=== PATIENT | male | born 1985 ===

== ENCOUNTER 2021-03-28 10:51 | Inpatient (IN) | payer SELFPAY ==
[2021-03-28] MEDS ORDERED: Lorazepam 2 MG/ML VIAL ONE ×2 (11:06→11:18)
[2021-03-28 12:03] LABS: Bilirubin Neg (Negative); Blood, Urine 50 (Negative); Clarity Slightly Cloudy (Clear); Glucose, Urine (Dipstick) Normal (Negative); Ketone, Urine Negative (Negative); Leukocyte Negative (Negative); Nitrite Negative (Negative); Protein, Urine (Dipstick) 30 mg/dl (Neg-Trace); pH, Urine 6.5 (5.0-9.0)
[2021-03-28 12:07] LABS: #Monocytes 0.5 10x3/uL (0.0-1.1); #Neutrophils 4.8 10x3/uL (1.5-8.4); %Basophils 0.5 % (0.0-2.0); %Eosinophils 0.3 % (0.0-6.0); %Lymphocytes 12.7 % (18.0-47.0); %Monocytes 8.7 % (0.0-10.0); %Neutrophils 77.3 % (40.0-75.0); Hemoglobin 14.7 g/dL (13.5-17.5); Mean Corpuscular HGB CONC 31.4 g/dL (32.0-36.0); Mean Corpuscular Hemoglobin 27.4 pg (27.0-33.0); Mean Corpuscular Volume 87.3 fl (81.2-95.1); Mean Platelet Volume 9.2 fl (7.4-10.4); Platelet Count 316 10x3/uL (150-450); RBC Distribution Width 14.4 % (11.5-14.5); Red Blood Cell (RBC) Count 5.36 10x6/uL (4.32-5.72); White Blood Cell (WBC) Count 6.2 10x3/uL (3.5-10.5)
[2021-03-28 12:09] LABS: Bacteria/HPF Rare-Few HPF (None Seen); Mucous/LPF 1+ LPF (<2+); RBC/HPF 0-3 HPF (0-3); Squamous Epithelial 0-3 HPF (0-3); WBC/HPF 0-3 HPF (0-3)
[2021-03-28 12:10] LABS: Amphetamine Detected (NotDetected); Barbiturates Screen Not Detected (NotDetected); Benzodiazepine Screen Not Detected (NotDetected); Cocaine Metabolite Screen Not Detected (NotDetected); Methadone Not Detected (NotDetected); Methamphetamine Detected (NotDetected); Opiate Screen Detected (NotDetected); Oxycodone Screen Not Detected (NotDetected); Phencyclidine (PCP) Not Detected (NotDetected); THC/Cannabinoid Screen Detected (NotDetected); Tricyclic Screen Not Detected (NotDetected)
[2021-03-28 12:17] LABS: ALT (SGPT) 36 U/L (8-55); AST (SGOT) 45 U/L (5-34); Albumin 4.1 g/dL (3.5-5.0); Alkaline Phosphatase 95 U/L (40-110); Anion Gap 14 mmol/L (10-20); BUN (Urea Nitrogen) 25 mg/dL (8.9-20.6); Bilirubin, Total 0.2 mg/dL (0.2-1.2); Calc. Creatinine Clearance 0 mL/min (70-130); Calcium 8.3 mg/dL (7.8-10.44); Carbon Dioxide 24 mmol/L (22-29); Chloride 104 mmol/L (98-107); Globulin 3.3 g/dL (2.4-3.5); Lipase 23 U/L (8-78); Potassium 4.3 mmol/L (3.5-5.1); Protein, Total 7.4 g/dL (6.0-8.3); Sodium 138 mmol/L (136-145)
[2021-03-28 12:18] LABS: Acetaminophen Less than 6.0 mcg/mL (10.0-30.0); Alcohol Less than 10 mg/dL (Less than 10); CK (CPK) 1840 U/L (30-200); Magnesium 2.3 mg/dL (1.6-2.6); Salicylate Less than 8.0 mg/dL (15.0-30.0)
[2021-03-28 12:20] LABS: Glucose 46 mg/dL (70-105)
[2021-03-28] MEDS ORDERED: Ventilator Sedation Protocol 1 EACH FS SCH ×2 (13:45→17:00)
[2021-03-28] MEDS ORDERED: Acetaminophen 650 MG Suppository PR PRN (13:45)
[2021-03-28] MEDS ORDERED: Rocuronium Bromide 10 MG/ML (10ML VIAL) ONE (13:50)
[2021-03-28] MEDS ORDERED: Dextrose 5 % And 0.9 % NaCl 1,000 ML IV SCH (14:00)
[2021-03-28 14:22] LABS: SARS-CoV-2 NAA Rapid Test Not Detected (NotDetected)
[2021-03-28 14:33] LABS: Lactic Acid 1.8 mmol/L (0.5-2.2)
[2021-03-28] MEDS ORDERED: Propofol 1,000 MG/100 ML VIAL IV ONE (14:39)
[2021-03-28] MEDS ORDERED: Morphine 2 MG/ML VIAL SLOW IVP PRN (14:45)
[2021-03-28] MEDS ORDERED: Propofol BOLUS 1,000 MG/100 ML VIAL IV PRN (14:45)
[2021-03-28] MEDS ORDERED: Fentanyl BOLUS 250 ML IVPB PRN (14:45)
[2021-03-28] MEDS ORDERED: DISCONTINUE PREVIOUS NARCOTIC PAIN MEDICATIONS AND BENZODIAZEPINES FS SCH (14:45)
[2021-03-28 15:20] LABS: Actual Bicarbonate (HCO3a) 20.4 mEq/L (22-28); CO2 Tension 43.5 mmHg (35.0-45.0); Calcium, Ionized (arterial) 1.09 mmol/L (1.12-1.30); Carboxyhemoglobin (COHb) 1.5 gm% (0.0-3.0); O2 Tension (PaO2), arterial 156.1 mmHg (80.0-100.0); Potassium - ABG Lab 4.2 mmol/L (3.70-5.30); Puncture Site RRA; pH, Arterial 7.29 (7.35-7.45)
[2021-03-28 15:22] LABS: ALV-art Gradient 502.525 mmHg (0-20)
[2021-03-28] MEDS: fentaNYL Citrate-0.9 % NaCl/PF 100 ML IVPB SCH (15:27)
[2021-03-28] MEDS: Propofol 1,000 MG/100 ML VIAL IV PRN ×2 (15:27→17:13)
[2021-03-28] MEDS ORDERED: Ondansetron ODT 4 MG TAB ONE (16:26)
[2021-03-28] MEDS ORDERED: Piperacillin/Tazobactam 3.375 GM in Sodium Chloride 0.9% 100 ML IVPB SCH (16:30)
[2021-03-28 16:42] LABS: SARS-CoV-2 NAA Rapid Test Not Detected (NotDetected)
[2021-03-28] MEDS ORDERED: Dextrose 5%-Lactated Ringers 1,000 ML IV SCH (17:00)
[2021-03-28] MEDS: Midazolam In 0.9 % NaCl/PF 100 ML IVPB PRN (17:39)
[2021-03-28 18:15] LABS: Anion Gap 15 mmol/L (10-20); BUN (Urea Nitrogen) 24 mg/dL (8.9-20.6); Calc. Creatinine Clearance 122 mL/min (70-130); Calcium 7.9 mg/dL (7.8-10.44); Carbon Dioxide 21 mmol/L (22-29); Chloride 108 mmol/L (98-107); Glucose 103 mg/dL (70-105); Potassium 5.9 mmol/L (3.5-5.1); Sodium 138 mmol/L (136-145)
[2021-03-28 18:26] LABS: CK (CPK) 5566 U/L (30-200)
[2021-03-28] MEDS ORDERED: Dextrose 50% Abboject 50 ML SYRINGE SLOW IVP SCH (20:00)
[2021-03-28] MEDS ORDERED: Insulin Regular 300 UNITS/3 ML VIAL IVP SCH (20:00)
[2021-03-28] MEDS: Sodium Chloride 0.9% 1,000 ML IV SCH (20:32)
[2021-03-28] MEDS: Piperacillin/Tazobactam 3.375 GM in Sodium Chloride 0.9% 100 ML IVPB SCH (20:33)
[2021-03-28] MEDS: Sodium Bicarbonate 150 MEQ, Admixture Fee 1 EACH in Dextrose 5% in Water 1,000 ML IV SCH (21:51)
[2021-03-28 23:47] LABS: Anion Gap 11 mmol/L (10-20); BUN (Urea Nitrogen) 19 mg/dL (8.9-20.6); Calc. Creatinine Clearance 158 mL/min (70-130); Calcium 7.5 mg/dL (7.8-10.44); Carbon Dioxide 21 mmol/L (22-29); Chloride 109 mmol/L (98-107); Glucose 121 mg/dL (70-105); Potassium 4.3 mmol/L (3.5-5.1); Sodium 137 mmol/L (136-145)
[2021-03-29 00:08] LABS: CK (CPK) 5515 U/L (30-200)
[2021-03-29] MEDS: Midazolam In 0.9 % NaCl/PF 100 ML IVPB PRN ×2 (04:11→15:35)
[2021-03-29] MEDS: Sodium Chloride 0.9% 1,000 ML IV SCH ×2 (04:11→10:47)
[2021-03-29] MEDS: Piperacillin/Tazobactam 3.375 GM in Sodium Chloride 0.9% 100 ML IVPB SCH ×3 (06:08→21:13)
[2021-03-29 06:31] LABS: #Eosinphils 0.1 10x3/uL (0.0-0.5); #Monocytes 0.4 10x3/uL (0.0-1.1); #Neutrophils 5.3 10x3/uL (1.5-8.4); %Basophils 0.3 % (0.0-2.0); %Eosinophils 0.9 % (0.0-6.0); %Lymphocytes 14.1 % (18.0-47.0); %Monocytes 6.1 % (0.0-10.0); %Neutrophils 78.3 % (40.0-75.0); Hemoglobin 9.9 g/dL (13.5-17.5); Mean Corpuscular HGB CONC 31.1 g/dL (32.0-36.0); Mean Corpuscular Hemoglobin 27.6 pg (27.0-33.0); Mean Corpuscular Volume 88.6 fl (81.2-95.1); Mean Platelet Volume 10.1 fl (7.4-10.4); Platelet Count 190 10x3/uL (150-450); RBC Distribution Width 14.6 % (11.5-14.5); Red Blood Cell (RBC) Count 3.59 10x6/uL (4.32-5.72); White Blood Cell (WBC) Count 6.8 10x3/uL (3.5-10.5)
[2021-03-29 06:34] LABS: Lactic Acid 1.6 mmol/L (0.5-2.2)
[2021-03-29] MEDS: Sodium Bicarbonate 150 MEQ, Admixture Fee 1 EACH in Dextrose 5% in Water 1,000 ML IV SCH (06:38)
[2021-03-29 06:40] LABS: Anion Gap 13 mmol/L (10-20); BUN (Urea Nitrogen) 16 mg/dL (8.9-20.6); Calc. Creatinine Clearance 204 mL/min (70-130); Calcium 6.8 mg/dL (7.8-10.44); Carbon Dioxide 21 mmol/L (22-29); Chloride 112 mmol/L (98-107); Glucose 96 mg/dL (70-105); Potassium 3.7 mmol/L (3.5-5.1); Sodium 142 mmol/L (136-145)
[2021-03-29 06:51] LABS: CK (CPK) 4441 U/L (30-200)
[2021-03-29 07:09] LABS: Anisocytosis SLIGHT = 6-15 cells (100X) (0-5/hpf); Toxic Granulation SLIGHT
[2021-03-29 07:10] LABS: Platelet Morphology Comment Appears Adequate
[2021-03-29] MEDS: fentaNYL Citrate-0.9 % NaCl/PF 100 ML IVPB SCH ×2 (08:34→17:46)
[2021-03-29] MEDS: Lorazepam 2 MG/ML VIAL SLOW IVP PRN (08:35)
[2021-03-29] MEDS: Pantoprazole 40 MG VIAL IVP SCH (08:51)
[2021-03-29] MEDS: Enoxaparin Sodium 40 MG/0.4 ML SYRINGE SC SCH (08:51)
[2021-03-29] MEDS: Vecuronium Bromide 50 MG, Admixture Fee 1 EACH in Sodium Chloride 0.9% 250 ML 250 ML IV PRN ×2 (09:29→17:47)
[2021-03-29 10:47] LABS: Actual Bicarbonate (HCO3a) 30.7 mEq/L (22-28); Base Excess (BEa) 2.3 mEq/L (-2.0 to +3.0); CO2 Tension 66.6 mmHg (35.0-45.0); Calcium, Ionized (arterial) 1.08 mmol/L (1.12-1.30); Carboxyhemoglobin (COHb) 0.2 gm% (0.0-3.0); Hemoglobin (Hb) 12.9 g/dL (14.0-18.0); O2 Tension (PaO2), arterial 60.5 mmHg (80.0-100.0); Potassium - ABG Lab 3.8 mmol/L (3.70-5.30); Puncture Site RRA; pH, Arterial 7.28 (7.35-7.45)
[2021-03-29] MEDS ORDERED: Sodium Bicarbonate 2.5 MEQ/5 ML VIAL ONE (11:03)
[2021-03-29] MEDS ORDERED: Lidocaine 1% PF 5 ML VIAL ONE (11:03)
[2021-03-29] MEDS: Acetaminophen 650 MG/20.3 ML UDCUP PER TUBE PRN ×2 (11:52→21:13)
[2021-03-29 15:03] LABS: Hemoglobin 10.6 g/dL (13.5-17.5)
[2021-03-29] MEDS: Dexmedetomidine In 0.9 % NaCl 100 ML IVPB SCH ×3 (15:17→23:21)
[2021-03-29 20:55] LABS: Anion Gap 9 mmol/L (10-20); BUN (Urea Nitrogen) 16 mg/dL (8.9-20.6); CK (CPK) 2604 U/L (30-200); Calc. Creatinine Clearance 163 mL/min (70-130); Calcium 7.7 mg/dL (7.8-10.44); Carbon Dioxide 30 mmol/L (22-29); Chloride 104 mmol/L (98-107); Glucose 109 mg/dL (70-105); Potassium 4.3 mmol/L (3.5-5.1); Sodium 139 mmol/L (136-145)
[2021-03-29] MEDS ORDERED: Lactated Ringer's 1,000 ML IV SCH (21:00)
[2021-03-30] MEDS: Midazolam In 0.9 % NaCl/PF 100 ML IVPB PRN ×2 (02:00→12:42)
[2021-03-30] MEDS ORDERED: Sodium Chloride 0.9% 1,000 ML IV SCH ×2 (02:00→05:45)
[2021-03-30] MEDS ORDERED: Norepinephrine 8 MG/0.9% NS 250 ML IVPB SCH (02:00)
[2021-03-30] MEDS: Dexmedetomidine In 0.9 % NaCl 100 ML IVPB SCH ×6 (02:05→21:51)
[2021-03-30] MEDS: fentaNYL Citrate-0.9 % NaCl/PF 100 ML IVPB SCH ×2 (02:05→15:10)
[2021-03-30 04:45] LABS: #Eosinphils 0.1 10x3/uL (0.0-0.5); #Monocytes 0.5 10x3/uL (0.0-1.1); #Neutrophils 5.7 10x3/uL (1.5-8.4); %Basophils 0.4 % (0.0-2.0); %Eosinophils 1.4 % (0.0-6.0); %Lymphocytes 13.1 % (18.0-47.0); %Monocytes 7.4 % (0.0-10.0); %Neutrophils 77.3 % (40.0-75.0); Hemoglobin 10.5 g/dL (13.5-17.5); Mean Corpuscular HGB CONC 29.7 g/dL (32.0-36.0); Mean Corpuscular Volume 90.7 fl (81.2-95.1); Mean Platelet Volume 10.2 fl (7.4-10.4); Platelet Count 180 10x3/uL (150-450); RBC Distribution Width 14.5 % (11.5-14.5); Red Blood Cell (RBC) Count 3.89 10x6/uL (4.32-5.72); White Blood Cell (WBC) Count 7.3 10x3/uL (3.5-10.5)
[2021-03-30 04:47] LABS: ALT (SGPT) 41 U/L (8-55); Albumin 2.7 g/dL (3.5-5.0); Alkaline Phosphatase 58 U/L (40-110); Anion Gap 13 mmol/L (10-20); BUN (Urea Nitrogen) 17 mg/dL (8.9-20.6); Bilirubin, Total 0.6 mg/dL (0.2-1.2); CK (CPK) 1861 U/L (30-200); Calc. Creatinine Clearance 158 mL/min (70-130); Calcium 7.9 mg/dL (7.8-10.44); Carbon Dioxide 27 mmol/L (22-29); Chloride 106 mmol/L (98-107); Globulin 2.9 g/dL (2.4-3.5); Glucose 104 mg/dL (70-105); Potassium 5.5 mmol/L (3.5-5.1); Protein, Total 5.6 g/dL (6.0-8.3); Sodium 140 mmol/L (136-145)
[2021-03-30 04:49] LABS: AST (SGOT) 59 U/L (5-34)
[2021-03-30 05:22] LABS: Platelet Morphology Comment Appears Adequate; RBC Morphology Normal
[2021-03-30] MEDS: Piperacillin/Tazobactam 3.375 GM in Sodium Chloride 0.9% 100 ML IVPB SCH ×3 (05:24→21:51)
[2021-03-30] MEDS: Sodium Chloride 0.9% 1,000 ML IV SCH ×2 (06:27→16:46)
[2021-03-30 08:05] LABS: Base Excess (BEa) 1.7 mEq/L (-2.0 to +3.0); CO2 Tension 58.6 mmHg (35.0-45.0); Calcium, Ionized (arterial) 1.17 mmol/L (1.12-1.30); O2 Tension (PaO2), arterial 145.4 mmHg (80.0-100.0); Potassium - ABG Lab 4.4 mmol/L (3.70-5.30); Puncture Site RRA; pH, Arterial 7.31 (7.35-7.45)
[2021-03-30] MEDS: Vecuronium Bromide 50 MG, Admixture Fee 1 EACH in Sodium Chloride 0.9% 250 ML 250 ML IV PRN (08:49)
[2021-03-30] MEDS ORDERED: Enoxaparin Sodium 40 MG/0.4 ML SYRINGE ONE (08:59)
[2021-03-30] MEDS: Enoxaparin Sodium 40 MG/0.4 ML SYRINGE SC SCH (09:36)
[2021-03-30] MEDS: Pantoprazole 40 MG VIAL IVP SCH (09:37)
[2021-03-30] MEDS ORDERED: oxyCODONE 5 MG TAB PO PRN (10:49)
[2021-03-30 15:28] LABS: Anion Gap 11 mmol/L (10-20); BUN (Urea Nitrogen) 17 mg/dL (8.9-20.6); CK (CPK) 1088 U/L (30-200); Calc. Creatinine Clearance 222 mL/min (70-130); Calcium 7.6 mg/dL (7.8-10.44); Carbon Dioxide 25 mmol/L (22-29); Chloride 110 mmol/L (98-107); Glucose 93 mg/dL (70-105); Potassium 5.2 mmol/L (3.5-5.1); Sodium 141 mmol/L (136-145)
[2021-03-30] MEDS: chlordiazePOXIDE HCl 25 MG CAP PO SCH ×2 (16:11→21:51)
[2021-03-30] MEDS ORDERED: Metoclopramide HCl 10 MG/2 ML VIAL IVP SCH (18:00)
[2021-03-30] MEDS ORDERED: Polyethylene Glycol 3350 17 GM Packet PO SCH (20:30)
[2021-03-30] MEDS ORDERED: oxyCODONE ER 10 MG TAB PO SCH ×2 (21:00)
[2021-03-31] MEDS: fentaNYL Citrate-0.9 % NaCl/PF 100 ML IVPB SCH ×3 (02:14→20:28)
[2021-03-31] MEDS: Midazolam In 0.9 % NaCl/PF 100 ML IVPB PRN ×2 (02:17→16:27)
[2021-03-31] MEDS: Dexmedetomidine In 0.9 % NaCl 100 ML IVPB SCH ×6 (02:20→19:26)
[2021-03-31 04:02] LABS: Anion Gap 13 mmol/L (10-20); BUN (Urea Nitrogen) 16 mg/dL (8.9-20.6); CK (CPK) 830 U/L (30-200); Calc. Creatinine Clearance 219 mL/min (70-130); Carbon Dioxide 26 mmol/L (22-29); Chloride 109 mmol/L (98-107); Glucose 111 mg/dL (70-105); Magnesium 1.7 mg/dL (1.6-2.6); Potassium 4.3 mmol/L (3.5-5.1); Sodium 144 mmol/L (136-145)
[2021-03-31 04:15] LABS: Hemoglobin 10.8 g/dL (13.5-17.5); Mean Corpuscular HGB CONC 31.1 g/dL (32.0-36.0); Mean Corpuscular Hemoglobin 27.8 pg (27.0-33.0); Mean Corpuscular Volume 89.2 fl (81.2-95.1); Platelet Count 205 10x3/uL (150-450); RBC Distribution Width 14.5 % (11.5-14.5); Red Blood Cell (RBC) Count 3.89 10x6/uL (4.32-5.72); White Blood Cell (WBC) Count 7.5 10x3/uL (3.5-10.5)
[2021-03-31] MEDS: Piperacillin/Tazobactam 3.375 GM in Sodium Chloride 0.9% 100 ML IVPB SCH ×3 (04:40→22:28)
[2021-03-31] MEDS: Sodium Chloride 0.9% 1,000 ML IV SCH ×2 (04:41→17:11)
[2021-03-31 07:36] LABS: Actual Bicarbonate (HCO3a) 27.5 mEq/L (22-28); Base Excess (BEa) 1.6 mEq/L (-2.0 to +3.0); CO2 Tension 48.8 mmHg (35.0-45.0); Calcium, Ionized (arterial) 1.16 mmol/L (1.12-1.30); Carboxyhemoglobin (COHb) 0.3 gm% (0.0-3.0); Hemoglobin (Hb) 11.6 g/dL (14.0-18.0); O2 Tension (PaO2), arterial 116.1 mmHg (80.0-100.0); Potassium - ABG Lab 4.1 mmol/L (3.70-5.30); Puncture Site RRA; pH, Arterial 7.37 (7.35-7.45)
[2021-03-31] MEDS: chlordiazePOXIDE HCl 25 MG CAP PO SCH ×3 (08:05→22:28)
[2021-03-31] MEDS: Enoxaparin Sodium 40 MG/0.4 ML SYRINGE SC SCH (08:05)
[2021-03-31] MEDS: Pantoprazole 40 MG VIAL IVP SCH (08:06)
[2021-03-31] MEDS: Furosemide 20 MG/2 ML VIAL SLOW IVP SCH ×2 (08:30→22:28)
[2021-03-31] MEDS ORDERED: oxyCODONE 5 MG TAB PO PRN (10:20)
[2021-03-31] MEDS: Lorazepam 2 MG/ML VIAL SLOW IVP PRN ×2 (14:26→17:26)
[2021-03-31] MEDS: Propofol 1,000 MG/100 ML VIAL IV PRN ×2 (20:52→23:51)
[2021-04-01] MEDS: Piperacillin/Tazobactam 3.375 GM in Sodium Chloride 0.9% 100 ML IVPB SCH ×4 (00:27→23:00)
[2021-04-01] MEDS: Sodium Chloride 0.9% 1,000 ML IV SCH ×4 (00:27→14:27)
[2021-04-01] MEDS: Midazolam In 0.9 % NaCl/PF 100 ML IVPB PRN ×2 (02:54→11:16)
[2021-04-01 04:19] LABS: #Eosinphils 0.3 10x3/uL (0.0-0.5); #Monocytes 0.9 10x3/uL (0.0-1.1); #Neutrophils 4.7 10x3/uL (1.5-8.4); %Basophils 0.4 % (0.0-2.0); %Eosinophils 3.4 % (0.0-6.0); %Lymphocytes 17.7 % (18.0-47.0); %Monocytes 12.4 % (0.0-10.0); Hemoglobin 9.5 g/dL (13.5-17.5); Mean Corpuscular HGB CONC 30.9 g/dL (32.0-36.0); Mean Corpuscular Hemoglobin 27.5 pg (27.0-33.0); Mean Corpuscular Volume 88.7 fl (81.2-95.1); Mean Platelet Volume 10.4 fl (7.4-10.4); Platelet Count 179 10x3/uL (150-450); RBC Distribution Width 14.4 % (11.5-14.5); Red Blood Cell (RBC) Count 3.46 10x6/uL (4.32-5.72); White Blood Cell (WBC) Count 7.3 10x3/uL (3.5-10.5)
[2021-04-01 04:40] LABS: ALT (SGPT) 46 U/L (8-55); AST (SGOT) 36 U/L (5-34); Albumin 2.5 g/dL (3.5-5.0); Alkaline Phosphatase 63 U/L (40-110); Anion Gap 13 mmol/L (10-20); BUN (Urea Nitrogen) 13 mg/dL (8.9-20.6); Bilirubin, Total 0.5 mg/dL (0.2-1.2); CK (CPK) 505 U/L (30-200); Calc. Creatinine Clearance 212 mL/min (70-130); Calcium 8.1 mg/dL (7.8-10.44); Carbon Dioxide 27 mmol/L (22-29); Chloride 109 mmol/L (98-107); Globulin 2.9 g/dL (2.4-3.5); Glucose 91 mg/dL (70-105); Protein, Total 5.4 g/dL (6.0-8.3); Sodium 146 mmol/L (136-145)
[2021-04-01] MEDS: Dexmedetomidine In 0.9 % NaCl 100 ML IVPB SCH (05:57)
[2021-04-01] MEDS: chlordiazePOXIDE HCl 25 MG CAP PO SCH ×3 (05:57→21:00)
[2021-04-01] MEDS ORDERED: Potassium Chloride 20 MEQ TAB PER TUBE SCH (06:15)
[2021-04-01] MEDS: fentaNYL Citrate-0.9 % NaCl/PF 100 ML IVPB SCH ×2 (06:25→15:50)
[2021-04-01 06:39] LABS: Magnesium 1.4 mg/dL (1.6-2.6)
[2021-04-01] MEDS ORDERED: Potassium Chloride 20 MEQ in Premix Bag 1 BAG IVPB SCH (06:45)
[2021-04-01] MEDS: Propofol 1,000 MG/100 ML VIAL IV PRN ×4 (06:50→20:30)
[2021-04-01 07:54] LABS: Magnesium 1.5 mg/dL (1.6-2.6)
[2021-04-01] MEDS: Enoxaparin Sodium 40 MG/0.4 ML SYRINGE SC SCH (09:20)
[2021-04-01] MEDS: Furosemide 20 MG/2 ML VIAL SLOW IVP SCH ×2 (09:20→20:59)
[2021-04-01] MEDS: Polyethylene Glycol 3350 17 GM Packet PER TUBE SCH (09:21)
[2021-04-01] MEDS: Pantoprazole 40 MG VIAL IVP SCH (09:21)
[2021-04-01 09:57] LABS: Actual Bicarbonate (HCO3a) 27.8 mEq/L (22-28); Base Excess (BEa) 3.2 mEq/L (-2.0 to +3.0); CO2 Tension 42.4 mmHg (35.0-45.0); Calcium, Ionized (arterial) 1.13 mmol/L (1.12-1.30); Carboxyhemoglobin (COHb) 0.3 gm% (0.0-3.0); Hemoglobin (Hb) 10.9 g/dL (14.0-18.0); O2 Tension (PaO2), arterial 72.9 mmHg (80.0-100.0); Potassium - ABG Lab 2.9 mmol/L (3.70-5.30); Puncture Site RRA; pH, Arterial 7.43 (7.35-7.45)
[2021-04-01] MEDS ORDERED: PHENobarbital Sodium 65 MG/ML VIAL SLOW IVP SCH ×3 (11:00→14:00)
[2021-04-01] MEDS ORDERED: Magnesium 2 GM/50 ML 2 GM in Premix Bag 1 BAG IVPB SCH (12:00)
[2021-04-01] MEDS: Potassium Bicarbonate/Cit Ac 20 MEQ TAB PER TUBE SCH ×2 (12:07→15:52)
[2021-04-01] MEDS: Acetaminophen 650 MG/20.3 ML UDCUP PER TUBE PRN (12:07)
[2021-04-01] MEDS: Furosemide 40 MG/4 ML VIAL SLOW IVP SCH ×2 (15:22→15:50)
[2021-04-01] MEDS: PHENobarbital Sodium 65 MG/ML VIAL SLOW IVP SCH ×2 (17:09→20:59)
[2021-04-02] MEDS: PHENobarbital Sodium 65 MG/ML VIAL SLOW IVP SCH ×6 (00:25→20:52)
[2021-04-02] MEDS: Propofol 1,000 MG/100 ML VIAL IV PRN ×5 (01:38→22:07)
[2021-04-02] MEDS: fentaNYL Citrate-0.9 % NaCl/PF 100 ML IVPB SCH (01:38)
[2021-04-02] MEDS: Furosemide 40 MG/4 ML VIAL SLOW IVP SCH ×2 (02:35→14:44)
[2021-04-02] MEDS: Midazolam In 0.9 % NaCl/PF 100 ML IVPB PRN (03:44)
[2021-04-02] MEDS: chlordiazePOXIDE HCl 25 MG CAP PO SCH (05:07)
[2021-04-02] MEDS: Piperacillin/Tazobactam 3.375 GM in Sodium Chloride 0.9% 100 ML IVPB SCH ×3 (05:07→20:52)
[2021-04-02 06:36] LABS: Albumin 2.6 g/dL (3.5-5.0); Anion Gap 16 mmol/L (10-20); BUN (Urea Nitrogen) 13 mg/dL (8.9-20.6); BUN/Creatinine Ratio 15.85; CK (CPK) 442 U/L (30-200); Calc. Creatinine Clearance 208 mL/min (70-130); Calcium 8.6 mg/dL (7.8-10.44); Carbon Dioxide 25 mmol/L (22-29); Chloride 110 mmol/L (98-107); Glucose 132 mg/dL (70-105); Phosphorus 2.4 mg/dL (2.3-4.7); Potassium 3.8 mmol/L (3.5-5.1); Sodium 147 mmol/L (136-145)
[2021-04-02 06:48] LABS: Platelet Count 152 10x3/uL (150-450)
[2021-04-02 06:57] LABS: Hemoglobin 9.9 g/dL (13.5-17.5); Mean Corpuscular HGB CONC 31.8 g/dL (32.0-36.0); Mean Corpuscular Volume 84.7 fl (81.2-95.1); Mean Platelet Volume 10.4 fl (7.4-10.4); RBC Distribution Width 14.7 % (11.5-14.5); Red Blood Cell (RBC) Count 3.67 10x6/uL (4.32-5.72); White Blood Cell (WBC) Count 8.5 10x3/uL (3.5-10.5)
[2021-04-02] MEDS: Pantoprazole 40 MG VIAL IVP SCH (07:56)
[2021-04-02] MEDS: Polyethylene Glycol 3350 17 GM Packet PER TUBE SCH (07:56)
[2021-04-02] MEDS: Furosemide 20 MG/2 ML VIAL SLOW IVP SCH (07:56)
[2021-04-02] MEDS: Enoxaparin Sodium 40 MG/0.4 ML SYRINGE SC SCH (07:56)
[2021-04-02] MEDS: Acetaminophen 650 MG/20.3 ML UDCUP PER TUBE PRN ×2 (08:44→12:27)
[2021-04-02] MEDS: Sodium Chloride 0.9% 1,000 ML IV SCH (11:37)
[2021-04-02] MEDS ORDERED: Piperacillin/Tazobactam 3.375 GM VIAL ONE (13:27)
[2021-04-02] MEDS ORDERED: chlordiazePOXIDE HCl 5 MG CAP PO SCH (14:00)
[2021-04-02] MEDS: chlordiazePOXIDE HCl 5 MG CAP PO SCH (20:50)
[2021-04-03] MEDS: PHENobarbital Sodium 65 MG/ML VIAL SLOW IVP SCH (01:27)
[2021-04-03] MEDS: Sodium Chloride 0.9% 1,000 ML IV SCH (01:28)
[2021-04-03] MEDS: Propofol 1,000 MG/100 ML VIAL IV PRN ×5 (03:43→22:40)
[2021-04-03] MEDS: chlordiazePOXIDE HCl 5 MG CAP PO SCH ×3 (05:30→21:07)
[2021-04-03] MEDS: Piperacillin/Tazobactam 3.375 GM in Sodium Chloride 0.9% 100 ML IVPB SCH ×3 (05:30→21:08)
[2021-04-03] MEDS: Acetaminophen 650 MG/20.3 ML UDCUP PER TUBE PRN ×2 (08:44→14:45)
[2021-04-03] MEDS: Polyethylene Glycol 3350 17 GM Packet PER TUBE SCH (08:44)
[2021-04-03] MEDS: Furosemide 40 MG/4 ML VIAL SLOW IVP SCH (08:44)
[2021-04-03] MEDS: Enoxaparin Sodium 40 MG/0.4 ML SYRINGE SC SCH (08:45)
[2021-04-03] MEDS: Pantoprazole 40 MG VIAL IVP SCH (08:45)
[2021-04-03] MEDS: fentaNYL Citrate-0.9 % NaCl/PF 100 ML IVPB SCH (09:11)
[2021-04-03] MEDS ORDERED: Sodium Chloride 0.9% 1,000 ML IV SCH (11:00)
[2021-04-03] MEDS: Metoclopramide HCl 10 MG/2 ML VIAL IVP SCH ×3 (12:02→23:50)
[2021-04-03 12:29] LABS: Hemoglobin 11.1 g/dL (13.5-17.5); Mean Corpuscular HGB CONC 31.4 g/dL (32.0-36.0); Mean Corpuscular Volume 85.9 fl (81.2-95.1); Mean Platelet Volume 10.5 fl (7.4-10.4); Platelet Count 252 10x3/uL (150-450); RBC Distribution Width 15.2 % (11.5-14.5); Red Blood Cell (RBC) Count 4.11 10x6/uL (4.32-5.72)
[2021-04-03 12:39] LABS: ALT (SGPT) 39 U/L (8-55); Albumin 2.9 g/dL (3.5-5.0); Alkaline Phosphatase 126 U/L (40-110); Anion Gap 17 mmol/L (10-20); BUN (Urea Nitrogen) 13 mg/dL (8.9-20.6); Bilirubin, Total 0.7 mg/dL (0.2-1.2); Calc. Creatinine Clearance 200 mL/min (70-130); Calcium 8.8 mg/dL (7.8-10.44); Carbon Dioxide 24 mmol/L (22-29); Chloride 107 mmol/L (98-107); Globulin 4.4 g/dL (2.4-3.5); Glucose 125 mg/dL (70-105); Potassium 4.4 mmol/L (3.5-5.1); Protein, Total 7.3 g/dL (6.0-8.3); Sodium 144 mmol/L (136-145)
[2021-04-03 13:15] LABS: AST (SGOT) 38 U/L (5-34)
[2021-04-03 13:31] LABS: MDiff Complete? YES
[2021-04-03 13:34] LABS: Band 2 % (5-11); Eosinophils 1 % (0-10); Large Platelets SLIGHT; Lymphocytes 15 % (21-51); Monocytes 12 % (0-10); Neutrophil 69 % (42-75); Nucleated RBC 1 % (0); Platelet Morphology Comment Appears Adequate
[2021-04-03 13:35] LABS: White Blood Cell (WBC) Count 9.3 10x3/uL (3.5-10.5)
[2021-04-04] MEDS: Propofol 1,000 MG/100 ML VIAL IV PRN ×3 (04:51→16:25)
[2021-04-04] MEDS: chlordiazePOXIDE HCl 5 MG CAP PO SCH ×2 (05:05→14:51)
[2021-04-04] MEDS: Metoclopramide HCl 10 MG/2 ML VIAL IVP SCH ×4 (05:05→23:43)
[2021-04-04] MEDS: Piperacillin/Tazobactam 3.375 GM in Sodium Chloride 0.9% 100 ML IVPB SCH ×3 (05:06→21:15)
[2021-04-04 07:47] LABS: Actual Bicarbonate (HCO3a) 26.1 mEq/L (22-28); Base Excess (BEa) 2.2 mEq/L (-2.0 to +3.0); Calcium, Ionized (arterial) 1.14 mmol/L (1.12-1.30); Carboxyhemoglobin (COHb) 0.3 gm% (0.0-3.0); Hemoglobin (Hb) 11.5 g/dL (14.0-18.0); O2 Tension (PaO2), arterial 58.5 mmHg (80.0-100.0); Potassium - ABG Lab 3.7 mmol/L (3.70-5.30); Puncture Site RRA; pH, Arterial 7.46 (7.35-7.45)
[2021-04-04] MEDS: Pantoprazole 40 MG VIAL IVP SCH (08:56)
[2021-04-04] MEDS: Enoxaparin Sodium 40 MG/0.4 ML SYRINGE SC SCH (08:56)
[2021-04-04] MEDS: Furosemide 40 MG/4 ML VIAL SLOW IVP SCH (08:56)
[2021-04-04] MEDS: Polyethylene Glycol 3350 17 GM Packet PER TUBE SCH (08:56)
[2021-04-04] MEDS ORDERED: fentaNYL 75 mcg/hour Patch TD SCH (11:00)
[2021-04-04] MEDS: Haloperidol Lactate 5 MG/ML VIAL SLOW IVP SCH ×7 (11:07→22:33)
[2021-04-04] MEDS: Lorazepam 2 MG/ML VIAL SLOW IVP SCH ×7 (11:07→22:33)
[2021-04-04] MEDS: fentaNYL Citrate-0.9 % NaCl/PF 100 ML IVPB SCH (16:24)
[2021-04-04] MEDS: chlordiazePOXIDE HCl 25 MG CAP PO SCH (21:17)
[2021-04-05] MEDS: Lorazepam 2 MG/ML VIAL SLOW IVP SCH ×4 (01:04→07:45)
[2021-04-05] MEDS: Haloperidol Lactate 5 MG/ML VIAL SLOW IVP SCH ×12 (01:04→23:11)
[2021-04-05] MEDS: Propofol 1,000 MG/100 ML VIAL IV PRN (03:07)
[2021-04-05 04:26] LABS: ALT (SGPT) 55 U/L (8-55); AST (SGOT) 64 U/L (5-34); Albumin 2.9 g/dL (3.5-5.0); Alkaline Phosphatase 126 U/L (40-110); Anion Gap 14 mmol/L (10-20); BUN (Urea Nitrogen) 22 mg/dL (8.9-20.6); Bilirubin, Total 0.6 mg/dL (0.2-1.2); Calc. Creatinine Clearance 222 mL/min (70-130); Calcium 8.5 mg/dL (7.8-10.44); Carbon Dioxide 27 mmol/L (22-29); Chloride 104 mmol/L (98-107); Glucose 107 mg/dL (70-105); Potassium 3.3 mmol/L (3.5-5.1); Protein, Total 6.9 g/dL (6.0-8.3); Sodium 142 mmol/L (136-145)
[2021-04-05] MEDS ORDERED: Potassium Chloride 20 MEQ in Premix Bag 1 BAG IVPB SCH (05:15)
[2021-04-05] MEDS: chlordiazePOXIDE HCl 25 MG CAP PO SCH (05:32)
[2021-04-05] MEDS: Metoclopramide HCl 10 MG/2 ML VIAL IVP SCH ×4 (05:35→23:10)
[2021-04-05] MEDS: Piperacillin/Tazobactam 3.375 GM in Sodium Chloride 0.9% 100 ML IVPB SCH ×3 (05:35→20:52)
[2021-04-05 07:28] LABS: Hemoglobin 10.1 g/dL (13.5-17.5); Mean Corpuscular HGB CONC 31.5 g/dL (32.0-36.0); Mean Corpuscular Hemoglobin 26.9 pg (27.0-33.0); Mean Corpuscular Volume 85.4 fl (81.2-95.1); Mean Platelet Volume 9.8 fl (7.4-10.4); Platelet Count 294 10x3/uL (150-450); RBC Distribution Width 15.1 % (11.5-14.5); Red Blood Cell (RBC) Count 3.76 10x6/uL (4.32-5.72); White Blood Cell (WBC) Count 7.1 10x3/uL (3.5-10.5)
[2021-04-05 07:29] LABS: MDiff Complete? YES
[2021-04-05 07:32] LABS: Band 5 % (5-11); Eosinophils 4 % (0-10); Lymphocytes 18 % (21-51); Monocytes 15 % (0-10); Neutrophil 56 % (42-75); Reactive Lymphocytes 2 % (0-10)
[2021-04-05 07:33] LABS: Platelet Morphology Comment Appears Adequate; RBC Morphology Normal
[2021-04-05 08:18] LABS: Base Excess (BEa) 2.6 mEq/L (-2.0 to +3.0); CO2 Tension 41.3 mmHg (35.0-45.0); Carboxyhemoglobin (COHb) 0.4 gm% (0.0-3.0); Hemoglobin (Hb) 11.7 g/dL (14.0-18.0); O2 Tension (PaO2), arterial 64.2 mmHg (80.0-100.0); Potassium - ABG Lab 3.5 mmol/L (3.70-5.30); Puncture Site LRA; pH, Arterial 7.43 (7.35-7.45)
[2021-04-05 08:23] LABS: ALV-art Gradient 205.025 mmHg (0-20)
[2021-04-05] MEDS: Midazolam In 0.9 % NaCl/PF 100 ML IVPB PRN ×3 (09:32→18:19)
[2021-04-05] MEDS: Enoxaparin Sodium 40 MG/0.4 ML SYRINGE SC SCH ×2 (09:33→20:53)
[2021-04-05] MEDS: Polyethylene Glycol 3350 17 GM Packet PER TUBE SCH (09:34)
[2021-04-05] MEDS: Pantoprazole 40 MG VIAL IVP SCH (09:34)
[2021-04-05] MEDS: Furosemide 40 MG/4 ML VIAL SLOW IVP SCH (09:34)
[2021-04-05] MEDS ORDERED: Metoclopramide HCl 10 MG/2 ML VIAL ONE (12:46)
[2021-04-05] MEDS: Erythromycin Base 250 MG TAB PO SCH ×3 (13:06→23:10)
[2021-04-05 17:24] LABS: SARS-CoV-2 PCR by NAA Not Detected (NotDetected)
[2021-04-05] MEDS: Acetaminophen 650 MG/20.3 ML UDCUP PER TUBE PRN (20:53)
[2021-04-06] MEDS: Haloperidol Lactate 5 MG/ML VIAL SLOW IVP SCH ×12 (01:05→22:57)
[2021-04-06 01:56] LABS: ALT (SGPT) 69 U/L (8-55); AST (SGOT) 74 U/L (5-34); Albumin 3.3 g/dL (3.5-5.0); Alkaline Phosphatase 143 U/L (40-110); Anion Gap 17 mmol/L (10-20); BUN (Urea Nitrogen) 22 mg/dL (8.9-20.6); Bilirubin, Total 0.7 mg/dL (0.2-1.2); CK (CPK) 537 U/L (30-200); Calc. Creatinine Clearance 213 mL/min (70-130); Calcium 8.8 mg/dL (7.8-10.44); Carbon Dioxide 23 mmol/L (22-29); Chloride 105 mmol/L (98-107); Globulin 4.4 g/dL (2.4-3.5); Glucose 118 mg/dL (70-105); Potassium 3.7 mmol/L (3.5-5.1); Protein, Total 7.7 g/dL (6.0-8.3); Sodium 141 mmol/L (136-145)
[2021-04-06 02:37] LABS: #Basophils 0.1 10x3/uL (0.0-0.2); #Eosinphils 0.3 10x3/uL (0.0-0.5); #Monocytes 1.1 10x3/uL (0.0-1.1); %Basophils 0.5 % (0.0-2.0); %Eosinophils 2.4 % (0.0-6.0); %Neutrophils 70.3 % (40.0-75.0); Hemoglobin 11.2 g/dL (13.5-17.5); Mean Corpuscular HGB CONC 31.9 g/dL (32.0-36.0); Mean Corpuscular Hemoglobin 26.7 pg (27.0-33.0); Mean Corpuscular Volume 83.6 fl (81.2-95.1); Mean Platelet Volume 9.7 fl (7.4-10.4); Platelet Count 376 10x3/uL (150-450); RBC Distribution Width 14.6 % (11.5-14.5); White Blood Cell (WBC) Count 11.4 10x3/uL (3.5-10.5)
[2021-04-06] MEDS: Midazolam In 0.9 % NaCl/PF 100 ML IVPB PRN ×2 (02:37→18:44)
[2021-04-06] MEDS: Acetaminophen 650 MG/20.3 ML UDCUP PER TUBE PRN ×5 (03:49→23:08)
[2021-04-06] MEDS: Piperacillin/Tazobactam 3.375 GM in Sodium Chloride 0.9% 100 ML IVPB SCH ×3 (05:12→20:45)
[2021-04-06] MEDS: Erythromycin Base 250 MG TAB PO SCH ×2 (05:12→10:44)
[2021-04-06] MEDS: Metoclopramide HCl 10 MG/2 ML VIAL IVP SCH ×4 (05:12→22:52)
[2021-04-06] MEDS ORDERED: Potassium Phosphate 30 MMOL in Sodium Chloride 0.9% 250 ML 250 ML IVPB SCH (06:00)
[2021-04-06] MEDS: Furosemide 40 MG/4 ML VIAL SLOW IVP SCH (08:52)
[2021-04-06] MEDS: Enoxaparin Sodium 40 MG/0.4 ML SYRINGE SC SCH ×2 (08:54→20:45)
[2021-04-06] MEDS: Polyethylene Glycol 3350 17 GM Packet PER TUBE SCH (08:55)
[2021-04-06] MEDS: Pantoprazole 40 MG VIAL IVP SCH (08:57)
[2021-04-06] MEDS: E.E.S. 200 MG/5 ML Oral Suspension PO SCH ×2 (16:23→22:52)
[2021-04-07] MEDS: Haloperidol Lactate 5 MG/ML VIAL SLOW IVP SCH ×5 (01:36→08:34)
[2021-04-07] MEDS: Acetaminophen 650 MG/20.3 ML UDCUP PER TUBE PRN ×4 (03:35→17:08)
[2021-04-07] MEDS: Metoclopramide HCl 10 MG/2 ML VIAL IVP SCH (05:23)
[2021-04-07] MEDS: Piperacillin/Tazobactam 3.375 GM in Sodium Chloride 0.9% 100 ML IVPB SCH (05:23)
[2021-04-07] MEDS: E.E.S. 200 MG/5 ML Oral Suspension PO SCH (05:23)
[2021-04-07 05:39] LABS: #Basophils 0.1 10x3/uL (0.0-0.2); #Eosinphils 0.4 10x3/uL (0.0-0.5); #Monocytes 1.1 10x3/uL (0.0-1.1); #Neutrophils 11.4 10x3/uL (1.5-8.4); %Basophils 0.4 % (0.0-2.0); %Eosinophils 2.6 % (0.0-6.0); %Lymphocytes 8.8 % (18.0-47.0); %Monocytes 7.6 % (0.0-10.0); %Neutrophils 78.9 % (40.0-75.0); Hemoglobin 11.3 g/dL (13.5-17.5); Mean Corpuscular HGB CONC 31.8 g/dL (32.0-36.0); Mean Corpuscular Volume 84.9 fl (81.2-95.1); Mean Platelet Volume 9.9 fl (7.4-10.4); Platelet Count 449 10x3/uL (150-450); RBC Distribution Width 14.8 % (11.5-14.5); Red Blood Cell (RBC) Count 4.18 10x6/uL (4.32-5.72); White Blood Cell (WBC) Count 14.4 10x3/uL (3.5-10.5)
[2021-04-07 05:59] LABS: Anion Gap 18 mmol/L (10-20); BUN (Urea Nitrogen) 25 mg/dL (8.9-20.6); Calc. Creatinine Clearance 211 mL/min (70-130); Calcium 9.2 mg/dL (7.8-10.44); Carbon Dioxide 22 mmol/L (22-29); Chloride 104 mmol/L (98-107); Glucose 119 mg/dL (70-105); Potassium 3.8 mmol/L (3.5-5.1); Sodium 140 mmol/L (136-145)
[2021-04-07] MEDS: Midazolam In 0.9 % NaCl/PF 100 ML IVPB PRN ×2 (08:32→13:58)
[2021-04-07] MEDS: Enoxaparin Sodium 40 MG/0.4 ML SYRINGE SC SCH ×2 (08:33→20:59)
[2021-04-07] MEDS: Pantoprazole 40 MG VIAL IVP SCH (08:33)
[2021-04-07] MEDS: Furosemide 40 MG/4 ML VIAL SLOW IVP SCH (08:33)
[2021-04-07 09:06] LABS: ALV-art Gradient 175.425 mmHg (0-20); Actual Bicarbonate (HCO3a) 26.3 mEq/L (22-28); Base Excess (BEa) 2.3 mEq/L (-2.0 to +3.0); CO2 Tension 38.9 mmHg (35.0-45.0); Calcium, Ionized (arterial) 1.15 mmol/L (1.12-1.30); Carboxyhemoglobin (COHb) 0.2 gm% (0.0-3.0); Hemoglobin (Hb) 12.2 g/dL (14.0-18.0); O2 Tension (PaO2), arterial 96.8 mmHg (80.0-100.0); Potassium - ABG Lab 3.7 mmol/L (3.70-5.30); Puncture Site RRA; pH, Arterial 7.45 (7.35-7.45)
[2021-04-07] MEDS: Polyethylene Glycol 3350 17 GM Packet PER TUBE SCH (09:46)
[2021-04-07 12:27] LABS: INR-International Normal Ratio 1.1; PTT 26.8 sec (22.0-33.0); Prothrombin Time 11.8 sec (9.5-12.1)
[2021-04-07 12:48] LABS: HIV (1/2) Antibody/Antigen Non-Reactive (NonReactive); HIV 1/2 INDEX 0.09 S/CO (<1.00); Syphilis Antibody Nonreactive (Nonreactive); Syphilis Antibody Index 0.07 S/CO (<1.00 Non-Reactive)
[2021-04-07] MEDS ORDERED: Meropenem 1 GM in Sodium Chloride 0.9% 100 ML IVPB SCH ×2 (13:00→14:00)
[2021-04-07] MEDS ORDERED: Ventilator Sedation Protocol 1 EACH FS SCH (13:30)
[2021-04-07] MEDS ORDERED: Morphine 2 MG/ML VIAL SLOW IVP PRN (13:45)
[2021-04-07] MEDS ORDERED: Propofol BOLUS 1,000 MG/100 ML VIAL IV PRN (13:45)
[2021-04-07] MEDS ORDERED: Fentanyl BOLUS 250 ML IVPB PRN (13:45)
[2021-04-07] MEDS: Propofol 1,000 MG/100 ML VIAL IV PRN ×3 (13:56→23:14)
[2021-04-07] MEDS: Diazepam 5 MG TAB PO SCH ×2 (15:50→20:33)
[2021-04-07 17:06] LABS: Strep pneumo Urine Ag NEGATIVE (NEGATIVE)
[2021-04-07 17:58] LABS: Hep C IgG Ab Non-Reactive (NonReactive); Hep C Index 0.18 S/CO (0-0.79)
[2021-04-07] MEDS: Famotidine/PF 20 mg/2ml Vial SLOW IVP SCH (20:33)
[2021-04-07] MEDS: Meropenem 1 GM in Sodium Chloride 0.9% 100 ML IVPB SCH (20:59)
[2021-04-08] MEDS: Acetaminophen 650 MG/20.3 ML UDCUP PER TUBE PRN ×2 (01:12→06:51)
[2021-04-08] MEDS: fentaNYL Citrate-0.9 % NaCl/PF 100 ML IVPB SCH ×2 (02:11→22:10)
[2021-04-08] MEDS: Midazolam In 0.9 % NaCl/PF 100 ML IVPB PRN ×3 (02:12→22:30)
[2021-04-08] MEDS: Propofol 1,000 MG/100 ML VIAL IV PRN ×5 (03:24→22:09)
[2021-04-08] MEDS: Meropenem 1 GM in Sodium Chloride 0.9% 100 ML IVPB SCH ×3 (03:51→22:10)
[2021-04-08 04:30] LABS: Legionella Urinary Ag Negative (Negative)
[2021-04-08 07:26] LABS: Hemoglobin 9.5 g/dL (13.5-17.5); Mean Corpuscular Hemoglobin 27.3 pg (27.0-33.0); Mean Corpuscular Volume 82.8 fl (81.2-95.1); Mean Platelet Volume 11.2 fl (7.4-10.4); RBC Distribution Width 14.9 % (11.5-14.5); Red Blood Cell (RBC) Count 3.48 10x6/uL (4.32-5.72); White Blood Cell (WBC) Count 8.1 10x3/uL (3.5-10.5)
[2021-04-08 07:34] LABS: MDiff Complete? YES; Platelet Count 277 10x3/uL (150-450)
[2021-04-08 08:37] LABS: ALT (SGPT) 70 U/L (8-55); AST (SGOT) 54 U/L (5-34); Albumin 3.2 g/dL (3.5-5.0); Alkaline Phosphatase 146 U/L (40-110); Anion Gap 14 mmol/L (10-20); BUN (Urea Nitrogen) 27 mg/dL (8.9-20.6); Bilirubin, Total 0.3 mg/dL (0.2-1.2); Calc. Creatinine Clearance 209 mL/min (70-130); Calcium 8.9 mg/dL (7.8-10.44); Carbon Dioxide 25 mmol/L (22-29); Chloride 103 mmol/L (98-107); Globulin 4.1 g/dL (2.4-3.5); Glucose 114 mg/dL (70-105); Potassium 3.9 mmol/L (3.5-5.1); Protein, Total 7.3 g/dL (6.0-8.3); Sodium 138 mmol/L (136-145)
[2021-04-08 08:40] LABS: Base Excess (BEa) 2.7 mEq/L (-2.0 to +3.0); CO2 Tension 35.7 mmHg (35.0-45.0); Calcium, Ionized (arterial) 1.11 mmol/L (1.12-1.30); Carboxyhemoglobin (COHb) 0.3 gm% (0.0-3.0); Hemoglobin (Hb) 10.9 g/dL (14.0-18.0); Potassium - ABG Lab 3.2 mmol/L (3.70-5.30); Puncture Site RRA; pH, Arterial 7.48 (7.35-7.45)
[2021-04-08 08:42] LABS: Band 1 % (5-11); Eosinophils 4 % (0-10); Lymphocytes 19 % (21-51); Metamyelocyte 1 % (0-0); Monocytes 9 % (0-10); Neutrophil 65 % (42-75); Reactive Lymphocytes 1 % (0-10)
[2021-04-08 08:43] LABS: Large Platelets SLIGHT; Platelet Clumps SLIGHT; Platelet Morphology Comment Appears Adequate; RBC Morphology Normal
[2021-04-08 08:44] LABS: ALV-art Gradient 173.225 mmHg (0-20)
[2021-04-08] MEDS: Diazepam 5 MG TAB PO SCH ×3 (09:00→22:08)
[2021-04-08] MEDS: Enoxaparin Sodium 40 MG/0.4 ML SYRINGE SC SCH ×2 (09:01→22:09)
[2021-04-08] MEDS: Famotidine/PF 20 mg/2ml Vial SLOW IVP SCH ×2 (09:01→22:08)
[2021-04-08] MEDS: Furosemide 40 MG/4 ML VIAL SLOW IVP SCH (09:01)
[2021-04-08] MEDS: Polyethylene Glycol 3350 17 GM Packet PER TUBE SCH (11:44)
[2021-04-08] MEDS: Lorazepam 2 MG/ML VIAL SLOW IVP PRN (22:26)
[2021-04-09] MEDS: Propofol 1,000 MG/100 ML VIAL IV PRN ×3 (02:42→11:31)
[2021-04-09] MEDS: Meropenem 1 GM in Sodium Chloride 0.9% 100 ML IVPB SCH ×3 (05:26→21:30)
[2021-04-09 05:57] LABS: #Basophils 0.1 10x3/uL (0.0-0.2); #Eosinphils 0.5 10x3/uL (0.0-0.5); #Neutrophils 6.1 10x3/uL (1.5-8.4); %Basophils 0.8 % (0.0-2.0); %Eosinophils 4.7 % (0.0-6.0); %Lymphocytes 16.3 % (18.0-47.0); %Monocytes 10.1 % (0.0-10.0); %Neutrophils 63.3 % (40.0-75.0); Hemoglobin 10.8 g/dL (13.5-17.5); Mean Corpuscular Hemoglobin 27.2 pg (27.0-33.0); Mean Corpuscular Volume 82.4 fl (81.2-95.1); Mean Platelet Volume 10.9 fl (7.4-10.4); Platelet Count 649 10x3/uL (150-450); RBC Distribution Width 14.8 % (11.5-14.5); Red Blood Cell (RBC) Count 3.97 10x6/uL (4.32-5.72); White Blood Cell (WBC) Count 9.6 10x3/uL (3.5-10.5)
[2021-04-09 07:16] LABS: Actual Bicarbonate (HCO3a) 26.3 mEq/L (22-28); Base Excess (BEa) 3.3 mEq/L (-2.0 to +3.0); CO2 Tension 34.3 mmHg (35.0-45.0); Calcium, Ionized (arterial) 1.16 mmol/L (1.12-1.30); Carboxyhemoglobin (COHb) 0.3 gm% (0.0-3.0); Hemoglobin (Hb) 10.7 g/dL (14.0-18.0); O2 Tension (PaO2), arterial 105.7 mmHg (80.0-100.0); Potassium - ABG Lab 3.6 mmol/L (3.70-5.30); Puncture Site RRA
[2021-04-09 07:21] LABS: ALV-art Gradient 172.275 mmHg (0-20)
[2021-04-09 07:22] LABS: ALT (SGPT) 63 U/L (8-55); AST (SGOT) 51 U/L (5-34); Albumin 3.1 g/dL (3.5-5.0); Alkaline Phosphatase 135 U/L (40-110); Anion Gap 18 mmol/L (10-20); BUN (Urea Nitrogen) 29 mg/dL (8.9-20.6); Bilirubin, Total 0.3 mg/dL (0.2-1.2); Calc. Creatinine Clearance 199 mL/min (70-130); Calcium 8.7 mg/dL (7.8-10.44); Carbon Dioxide 19 mmol/L (22-29); Chloride 105 mmol/L (98-107); Globulin 4.3 g/dL (2.4-3.5); Glucose 97 mg/dL (70-105); Potassium 4.7 mmol/L (3.5-5.1); Protein, Total 7.4 g/dL (6.0-8.3); Sodium 137 mmol/L (136-145)
[2021-04-09] MEDS: Enoxaparin Sodium 40 MG/0.4 ML SYRINGE SC SCH ×2 (09:07→21:29)
[2021-04-09] MEDS: Famotidine/PF 20 mg/2ml Vial SLOW IVP SCH ×2 (09:07→21:29)
[2021-04-09] MEDS: Polyethylene Glycol 3350 17 GM Packet PER TUBE SCH (09:07)
[2021-04-09] MEDS: Dexmedetomidine In 0.9 % NaCl 100 ML IVPB SCH ×5 (09:07→22:06)
[2021-04-09] MEDS: Lorazepam 2 MG/ML VIAL SLOW IVP PRN ×2 (09:07→21:23)
[2021-04-09] MEDS: Furosemide 40 MG/4 ML VIAL SLOW IVP SCH (09:07)
[2021-04-09] MEDS: Valproate Sodium 250 mg/5 ml UD Cup PER TUBE SCH ×2 (09:15→14:03)
[2021-04-09] MEDS: fentaNYL Citrate-0.9 % NaCl/PF 100 ML IVPB SCH (11:25)
[2021-04-09] MEDS ORDERED: DC Sedation Protocol FS ONE (16:30)
[2021-04-09] MEDS ORDERED: fentaNYL 50 mcg/hour Patch TD SCH (18:00)
[2021-04-09] MEDS: Valproate Sodium 250 mg/5 ml UD Cup PO SCH (21:30)
[2021-04-09] MEDS: Morphine 4 MG/ML VIAL SLOW IVP PRN (23:47)
[2021-04-10] MEDS ORDERED: Ziprasidone 20 MG VIAL IM SCH (00:15)
[2021-04-10] MEDS ORDERED: Sterile Water 10 ML ONE (00:17)
[2021-04-10] MEDS: Dexmedetomidine In 0.9 % NaCl 100 ML IVPB SCH ×7 (01:11→20:59)
[2021-04-10 03:51] LABS: #Basophils 0.1 10x3/uL (0.0-0.2); #Eosinphils 0.3 10x3/uL (0.0-0.5); #Monocytes 0.8 10x3/uL (0.0-1.1); #Neutrophils 5.7 10x3/uL (1.5-8.4); %Basophils 0.8 % (0.0-2.0); %Eosinophils 3.5 % (0.0-6.0); %Lymphocytes 22.4 % (18.0-47.0); %Monocytes 8.9 % (0.0-10.0); %Neutrophils 62.4 % (40.0-75.0); Hemoglobin 10.8 g/dL (13.5-17.5); Mean Corpuscular HGB CONC 32.5 g/dL (32.0-36.0); Mean Corpuscular Hemoglobin 26.7 pg (27.0-33.0); Mean Corpuscular Volume 82.2 fl (81.2-95.1); Mean Platelet Volume 10.6 fl (7.4-10.4); Platelet Count 664 10x3/uL (150-450); RBC Distribution Width 14.4 % (11.5-14.5); Red Blood Cell (RBC) Count 4.04 10x6/uL (4.32-5.72); White Blood Cell (WBC) Count 9.1 10x3/uL (3.5-10.5)
[2021-04-10 04:10] LABS: ALT (SGPT) 58 U/L (8-55); AST (SGOT) 42 U/L (5-34); Albumin 3.3 g/dL (3.5-5.0); Alkaline Phosphatase 125 U/L (40-110); Anion Gap 16 mmol/L (10-20); BUN (Urea Nitrogen) 25 mg/dL (8.9-20.6); Bilirubin, Total 0.3 mg/dL (0.2-1.2); Calc. Creatinine Clearance 211 mL/min (70-130); Calcium 8.9 mg/dL (7.8-10.44); Carbon Dioxide 19 mmol/L (22-29); Chloride 106 mmol/L (98-107); Globulin 4.2 g/dL (2.4-3.5); Glucose 97 mg/dL (70-105); Potassium 5.6 mmol/L (3.5-5.1); Protein, Total 7.5 g/dL (6.0-8.3); Sodium 135 mmol/L (136-145)
[2021-04-10] MEDS: Meropenem 1 GM in Sodium Chloride 0.9% 100 ML IVPB SCH ×3 (04:27→20:29)
[2021-04-10 09:24] LABS: Potassium 3.8 mmol/L (3.5-5.1)
[2021-04-10] MEDS: Valproate Sodium 250 mg/5 ml UD Cup PO SCH ×3 (09:26→20:30)
[2021-04-10] MEDS: Polyethylene Glycol 3350 17 GM Packet PER TUBE SCH (09:26)
[2021-04-10] MEDS: Furosemide 40 MG/4 ML VIAL SLOW IVP SCH (09:30)
[2021-04-10] MEDS: Enoxaparin Sodium 40 MG/0.4 ML SYRINGE SC SCH ×2 (09:31→20:29)
[2021-04-10] MEDS: Famotidine/PF 20 mg/2ml Vial SLOW IVP SCH ×2 (09:31→20:29)
[2021-04-10] MEDS: Morphine 4 MG/ML VIAL SLOW IVP PRN (20:51)
[2021-04-11] MEDS: Dexmedetomidine In 0.9 % NaCl 100 ML IVPB SCH (01:03)
[2021-04-11] MEDS: Meropenem 1 GM in Sodium Chloride 0.9% 100 ML IVPB SCH ×3 (04:25→20:06)
[2021-04-11 04:50] LABS: #Basophils 0.1 10x3/uL (0.0-0.2); #Eosinphils 0.6 10x3/uL (0.0-0.5); #Monocytes 0.9 10x3/uL (0.0-1.1); #Neutrophils 4.7 10x3/uL (1.5-8.4); %Basophils 0.8 % (0.0-2.0); %Lymphocytes 32.2 % (18.0-47.0); %Monocytes 8.9 % (0.0-10.0); Hemoglobin 11.3 g/dL (13.5-17.5); Mean Corpuscular HGB CONC 32.7 g/dL (32.0-36.0); Mean Corpuscular Hemoglobin 26.7 pg (27.0-33.0); Mean Corpuscular Volume 81.6 fl (81.2-95.1); RBC Distribution Width 14.3 % (11.5-14.5); Red Blood Cell (RBC) Count 4.24 10x6/uL (4.32-5.72); White Blood Cell (WBC) Count 9.6 10x3/uL (3.5-10.5)
[2021-04-11 04:51] LABS: Platelet Count 796 10x3/uL (150-450)
[2021-04-11 05:57] LABS: Platelet Morphology Comment Appears Increased; RBC Morphology Normal
[2021-04-11] MEDS: Enoxaparin Sodium 40 MG/0.4 ML SYRINGE SC SCH ×2 (07:54→19:52)
[2021-04-11] MEDS: Famotidine/PF 20 mg/2ml Vial SLOW IVP SCH ×2 (07:55→19:50)
[2021-04-11] MEDS: Furosemide 40 MG/4 ML VIAL SLOW IVP SCH (07:55)
[2021-04-11] MEDS: Polyethylene Glycol 3350 17 GM Packet PER TUBE SCH (07:55)
[2021-04-11] MEDS: Valproate Sodium 250 mg/5 ml UD Cup PO SCH ×3 (07:56→19:49)
[2021-04-11] MEDS: Lorazepam 2 MG/ML VIAL SLOW IVP PRN ×3 (08:36→22:25)
[2021-04-11 09:04] LABS: ALT (SGPT) 58 U/L (8-55); AST (SGOT) 49 U/L (5-34); Albumin 3.7 g/dL (3.5-5.0); Alkaline Phosphatase 140 U/L (40-110); Anion Gap 16 mmol/L (10-20); BUN (Urea Nitrogen) 18 mg/dL (8.9-20.6); Bilirubin, Total 0.4 mg/dL (0.2-1.2); Calc. Creatinine Clearance 186 mL/min (70-130); Calcium 9.4 mg/dL (7.8-10.44); Carbon Dioxide 23 mmol/L (22-29); Chloride 101 mmol/L (98-107); Globulin 4.7 g/dL (2.4-3.5); Glucose 108 mg/dL (70-105); Potassium 3.8 mmol/L (3.5-5.1); Protein, Total 8.4 g/dL (6.0-8.3); Sodium 136 mmol/L (136-145)
[2021-04-11] MEDS: Morphine 4 MG/ML VIAL SLOW IVP PRN ×2 (09:49→19:48)
[2021-04-11] MEDS: METHadone HCl 10 MG TAB PO SCH (11:10)
[2021-04-11] MEDS: Ondansetron PF 4 MG/2 ML Vial IVP PRN (20:22)
[2021-04-12 03:37] LABS: #Basophils 0.1 10x3/uL (0.0-0.2); #Eosinphils 0.6 10x3/uL (0.0-0.5); #Monocytes 0.8 10x3/uL (0.0-1.1); #Neutrophils 4.9 10x3/uL (1.5-8.4); %Eosinophils 6.3 % (0.0-6.0); %Lymphocytes 26.8 % (18.0-47.0); %Monocytes 9.4 % (0.0-10.0); %Neutrophils 54.6 % (40.0-75.0); Hemoglobin 12.3 g/dL (13.5-17.5); Mean Corpuscular HGB CONC 31.5 g/dL (32.0-36.0); Mean Corpuscular Hemoglobin 26.5 pg (27.0-33.0); Mean Corpuscular Volume 84.1 fl (81.2-95.1); Platelet Count 993 10x3/uL (150-450); RBC Distribution Width 14.1 % (11.5-14.5); Red Blood Cell (RBC) Count 4.65 10x6/uL (4.32-5.72); White Blood Cell (WBC) Count 8.9 10x3/uL (3.5-10.5)
[2021-04-12 04:13] LABS: ALT (SGPT) 57 U/L (8-55); Albumin 3.8 g/dL (3.5-5.0); Alkaline Phosphatase 128 U/L (40-110); Anion Gap 15 mmol/L (10-20); BUN (Urea Nitrogen) 17 mg/dL (8.9-20.6); Bilirubin, Total 0.4 mg/dL (0.2-1.2); Calc. Creatinine Clearance 183 mL/min (70-130); Calcium 9.3 mg/dL (7.8-10.44); Carbon Dioxide 24 mmol/L (22-29); Chloride 99 mmol/L (98-107); Globulin 4.9 g/dL (2.4-3.5); Glucose 101 mg/dL (70-105); Protein, Total 8.7 g/dL (6.0-8.3); Sodium 134 mmol/L (136-145)
[2021-04-12 04:45] LABS: AST (SGOT) 45 U/L (5-34); Magnesium 2.1 mg/dL (1.6-2.6)
[2021-04-12] MEDS: Meropenem 1 GM in Sodium Chloride 0.9% 100 ML IVPB SCH ×3 (05:07→21:27)
[2021-04-12] MEDS: Furosemide 40 MG/4 ML VIAL SLOW IVP SCH (08:19)
[2021-04-12] MEDS: Famotidine/PF 20 mg/2ml Vial SLOW IVP SCH (08:19)
[2021-04-12] MEDS: Lorazepam 2 MG/ML VIAL SLOW IVP PRN ×8 (08:20→23:32)
[2021-04-12] MEDS: Valproate Sodium 250 mg/5 ml UD Cup PO SCH ×3 (08:20→21:29)
[2021-04-12] MEDS: Enoxaparin Sodium 40 MG/0.4 ML SYRINGE SC SCH ×2 (08:20→22:27)
[2021-04-12] MEDS: METHadone HCl 10 MG TAB PO SCH (09:00)
[2021-04-12] MEDS ORDERED: Lactated Ringer's 1,000 ML IV SCH (09:45)
[2021-04-12] MEDS: Polyethylene Glycol 3350 17 GM Packet PER TUBE SCH (09:58)
[2021-04-12] MEDS ORDERED: fentaNYL 50 mcg/hour Patch TD SCH (17:30)
[2021-04-12] MEDS: Carvedilol 3.125 MG TAB PO SCH (18:12)
[2021-04-12] MEDS: Haloperidol Lactate 5 MG/ML VIAL SLOW IVP PRN (21:50)
[2021-04-12] MEDS: Famotidine 20 MG TAB PO SCH (22:47)
[2021-04-13] MEDS: Lorazepam 2 MG/ML VIAL SLOW IVP PRN ×2 (00:28→01:29)
[2021-04-13 04:23] LABS: Phosphorus 2.8 mg/dL (2.3-4.7)
[2021-04-13 04:28] LABS: ALT (SGPT) 55 U/L (8-55); AST (SGOT) 41 U/L (5-34); Albumin 3.7 g/dL (3.5-5.0); Alkaline Phosphatase 121 U/L (40-110); Anion Gap 15 mmol/L (10-20); BUN (Urea Nitrogen) 16 mg/dL (8.9-20.6); Bilirubin, Total 0.4 mg/dL (0.2-1.2); Calc. Creatinine Clearance 201 mL/min (70-130); Calcium 9.1 mg/dL (7.8-10.44); Carbon Dioxide 21 mmol/L (22-29); Chloride 102 mmol/L (98-107); Globulin 4.4 g/dL (2.4-3.5); Glucose 93 mg/dL (70-105); Magnesium 1.9 mg/dL (1.6-2.6); Potassium 4.4 mmol/L (3.5-5.1); Protein, Total 8.1 g/dL (6.0-8.3); Sodium 134 mmol/L (136-145)
[2021-04-13 05:35] LABS: #Basophils 0.1 10x3/uL (0.0-0.2); #Eosinphils 0.7 10x3/uL (0.0-0.5); #Monocytes 1.2 10x3/uL (0.0-1.1); #Neutrophils 6.6 10x3/uL (1.5-8.4); %Eosinophils 5.8 % (0.0-6.0); %Lymphocytes 24.2 % (18.0-47.0); %Monocytes 10.4 % (0.0-10.0); %Neutrophils 57.3 % (40.0-75.0); Hemoglobin 12.1 g/dL (13.5-17.5); Mean Corpuscular HGB CONC 31.8 g/dL (32.0-36.0); Mean Corpuscular Hemoglobin 26.5 pg (27.0-33.0); Mean Corpuscular Volume 83.4 fl (81.2-95.1); Mean Platelet Volume 9.9 fl (7.4-10.4); RBC Distribution Width 14.3 % (11.5-14.5); Red Blood Cell (RBC) Count 4.57 10x6/uL (4.32-5.72); White Blood Cell (WBC) Count 11.4 10x3/uL (3.5-10.5)
[2021-04-13 05:39] LABS: Platelet Count 927 10x3/uL (150-450)
[2021-04-13 05:41] LABS: Reflex for Review?? YES
[2021-04-13 05:47] LABS: Platelet Clumps SLIGHT; Platelet Morphology Comment Appears Increased; RBC Morphology Normal
[2021-04-13 05:48] LABS: Large Platelets SLIGHT
[2021-04-13] MEDS: Meropenem 1 GM in Sodium Chloride 0.9% 100 ML IVPB SCH ×3 (06:00→21:23)
[2021-04-13] MEDS ORDERED: Dexmedetomidine 200 MCG/2 ML VIAL SLOW IVP PRN (07:52)
[2021-04-13] MEDS ORDERED: Dexmedetomidine In 0.9 % NaCl 100 ML ONE (08:07)
[2021-04-13] MEDS: Dexmedetomidine In 0.9 % NaCl 400 MCG in Premix Bag 1 BAG IVPB SCH ×3 (08:08→21:12)
[2021-04-13] MEDS: Haloperidol Lactate 5 MG/ML VIAL SLOW IVP PRN (08:39)
[2021-04-13] MEDS: METHadone HCl 10 MG TAB PO SCH (09:58)
[2021-04-13] MEDS: Famotidine 20 MG TAB PO SCH ×2 (09:59→19:55)
[2021-04-13] MEDS: Lisinopril 5 MG TAB PO SCH (10:00)
[2021-04-13] MEDS: Valproate Sodium 250 mg/5 ml UD Cup PO SCH ×3 (10:00→19:55)
[2021-04-13] MEDS: Folic Acid 1 MG TAB PO SCH (10:00)
[2021-04-13] MEDS: Thiamine 100 MG TAB PO SCH (10:00)
[2021-04-13] MEDS: Enoxaparin Sodium 40 MG/0.4 ML SYRINGE SC SCH ×2 (10:00→19:54)
[2021-04-13] MEDS: Polyethylene Glycol 3350 17 GM Packet PER TUBE SCH (10:01)
[2021-04-13] MEDS: Carvedilol 3.125 MG TAB PO SCH ×2 (10:11→17:19)
[2021-04-13] MEDS: Morphine 4 MG/ML VIAL SLOW IVP PRN (21:21)
[2021-04-13] MEDS: Ondansetron PF 4 MG/2 ML Vial IVP PRN (23:00)
[2021-04-14] MEDS: Dexmedetomidine In 0.9 % NaCl 400 MCG in Premix Bag 1 BAG IVPB SCH ×7 (01:04→23:23)
[2021-04-14] MEDS: Meropenem 1 GM in Sodium Chloride 0.9% 100 ML IVPB SCH ×3 (05:13→22:08)
[2021-04-14] MEDS ORDERED: Lorazepam 2 MG/ML VIAL SLOW IVP SCH (06:00)
[2021-04-14] MEDS ORDERED: OLANZapine 5 MG TAB PO SCH (08:00)
[2021-04-14] MEDS: Carvedilol 3.125 MG TAB PO SCH ×2 (08:20→16:56)
[2021-04-14] MEDS: Lisinopril 5 MG TAB PO SCH (08:21)
[2021-04-14] MEDS: Thiamine 100 MG TAB PO SCH (08:22)
[2021-04-14] MEDS: Valproate Sodium 250 mg/5 ml UD Cup PO SCH ×3 (08:22→22:13)
[2021-04-14] MEDS: Famotidine 20 MG TAB PO SCH ×2 (08:22→22:04)
[2021-04-14] MEDS: Folic Acid 1 MG TAB PO SCH (08:22)
[2021-04-14] MEDS: Enoxaparin Sodium 40 MG/0.4 ML SYRINGE SC SCH ×2 (08:23→22:03)
[2021-04-14] MEDS: Polyethylene Glycol 3350 17 GM Packet PER TUBE SCH (08:23)
[2021-04-14] MEDS: METHadone HCl 10 MG TAB PO SCH (08:54)
[2021-04-14 13:13] LABS: Hep B Surface AG-Rflx Sendout Negative (Negative); Hepatitis B Core Total Negative (Negative); Hepatitis B Surface AB-Sendout Reactive (.)
[2021-04-14] MEDS: Gabapentin 300 MG CAP PO SCH (22:04)
[2021-04-14] MEDS: Melatonin 3 MG TAB PO SCH (22:08)
[2021-04-15] MEDS: Dexmedetomidine In 0.9 % NaCl 400 MCG in Premix Bag 1 BAG IVPB SCH ×7 (02:18→21:30)
[2021-04-15 04:34] LABS: #Basophils 0.1 10x3/uL (0.0-0.2); #Eosinphils 0.3 10x3/uL (0.0-0.5); #Monocytes 0.8 10x3/uL (0.0-1.1); #Neutrophils 2.5 10x3/uL (1.5-8.4); %Basophils 1.3 % (0.0-2.0); %Eosinophils 5.1 % (0.0-6.0); %Monocytes 12.9 % (0.0-10.0); %Neutrophils 40.1 % (40.0-75.0); Hemoglobin 10.8 g/dL (13.5-17.5); Mean Corpuscular HGB CONC 32.1 g/dL (32.0-36.0); Mean Corpuscular Hemoglobin 26.8 pg (27.0-33.0); Mean Corpuscular Volume 83.4 fl (81.2-95.1); Mean Platelet Volume 9.2 fl (7.4-10.4); Platelet Count 817 10x3/uL (150-450); RBC Distribution Width 13.9 % (11.5-14.5); Red Blood Cell (RBC) Count 4.03 10x6/uL (4.32-5.72); White Blood Cell (WBC) Count 6.3 10x3/uL (3.5-10.5)
[2021-04-15 04:36] LABS: ALT (SGPT) 33 U/L (8-55); AST (SGOT) 24 U/L (5-34); Albumin 3.4 g/dL (3.5-5.0); Alkaline Phosphatase 102 U/L (40-110); Anion Gap 15 mmol/L (10-20); BUN (Urea Nitrogen) 11 mg/dL (8.9-20.6); Bilirubin, Total 0.5 mg/dL (0.2-1.2); CK (CPK) 138 U/L (30-200); Calc. Creatinine Clearance 213 mL/min (70-130); Calcium 8.9 mg/dL (7.8-10.44); Carbon Dioxide 24 mmol/L (22-29); Chloride 104 mmol/L (98-107); Globulin 3.8 g/dL (2.4-3.5); Glucose 97 mg/dL (70-105); Magnesium 1.9 mg/dL (1.6-2.6); Protein, Total 7.2 g/dL (6.0-8.3); Sodium 139 mmol/L (136-145)
[2021-04-15] MEDS: Enoxaparin Sodium 40 MG/0.4 ML SYRINGE SC SCH ×2 (09:48→21:24)
[2021-04-15] MEDS: Lisinopril 5 MG TAB PO SCH (09:49)
[2021-04-15] MEDS: Folic Acid 1 MG TAB PO SCH (09:49)
[2021-04-15] MEDS: Famotidine 20 MG TAB PO SCH ×2 (09:49→21:24)
[2021-04-15] MEDS: Valproate Sodium 250 mg/5 ml UD Cup PO SCH ×3 (09:49→21:26)
[2021-04-15] MEDS: Carvedilol 3.125 MG TAB PO SCH ×2 (09:50→18:17)
[2021-04-15] MEDS: METHadone HCl 10 MG TAB PO SCH (09:50)
[2021-04-15] MEDS: Thiamine 100 MG TAB PO SCH (09:50)
[2021-04-15] MEDS: Gabapentin 300 MG CAP PO SCH ×3 (09:51→21:24)
[2021-04-15] MEDS: Polyethylene Glycol 3350 17 GM Packet PER TUBE SCH (10:02)
[2021-04-15] MEDS ORDERED: OLANZapine 5 MG TAB PO SCH (13:15)
[2021-04-15] MEDS: Melatonin 3 MG TAB PO SCH (21:25)
[2021-04-15] MEDS ORDERED: fentaNYL 50 mcg/hour Patch TD SCH (21:30)
[2021-04-16] MEDS: Dexmedetomidine In 0.9 % NaCl 400 MCG in Premix Bag 1 BAG IVPB SCH (01:06)
[2021-04-16 04:33] LABS: #Basophils 0.1 10x3/uL (0.0-0.2); #Eosinphils 0.2 10x3/uL (0.0-0.5); #Monocytes 0.8 10x3/uL (0.0-1.1); #Neutrophils 2.8 10x3/uL (1.5-8.4); %Basophils 1.1 % (0.0-2.0); %Eosinophils 3.6 % (0.0-6.0); %Lymphocytes 41.4 % (18.0-47.0); %Monocytes 11.9 % (0.0-10.0); %Neutrophils 41.4 % (40.0-75.0); Hemoglobin 11.3 g/dL (13.5-17.5); Mean Corpuscular HGB CONC 31.7 g/dL (32.0-36.0); Mean Corpuscular Hemoglobin 26.3 pg (27.0-33.0); Mean Corpuscular Volume 82.8 fl (81.2-95.1); Mean Platelet Volume 9.4 fl (7.4-10.4); Platelet Count 585 10x3/uL (150-450); RBC Distribution Width 14.4 % (11.5-14.5); White Blood Cell (WBC) Count 6.7 10x3/uL (3.5-10.5)
[2021-04-16 07:07] LABS: ALT (SGPT) 31 U/L (8-55); AST (SGOT) 29 U/L (5-34); Albumin 3.3 g/dL (3.5-5.0); Alkaline Phosphatase 103 U/L (40-110); Anion Gap 19 mmol/L (10-20); BUN (Urea Nitrogen) 16 mg/dL (8.9-20.6); Bilirubin, Total 0.3 mg/dL (0.2-1.2); Calc. Creatinine Clearance 191 mL/min (70-130); Calcium 9.3 mg/dL (7.8-10.44); Carbon Dioxide 18 mmol/L (22-29); Chloride 106 mmol/L (98-107); Globulin 3.8 g/dL (2.4-3.5); Glucose 109 mg/dL (70-105); Magnesium 1.8 mg/dL (1.6-2.6); Potassium 5.7 mmol/L (3.5-5.1); Protein, Total 7.1 g/dL (6.0-8.3); Sodium 137 mmol/L (136-145)
[2021-04-16] MEDS: Gabapentin 300 MG CAP PO SCH ×3 (08:34→20:43)
[2021-04-16] MEDS: Carvedilol 3.125 MG TAB PO SCH ×2 (08:35→16:35)
[2021-04-16] MEDS: Famotidine 20 MG TAB PO SCH ×2 (08:35→20:44)
[2021-04-16] MEDS: Enoxaparin Sodium 40 MG/0.4 ML SYRINGE SC SCH ×2 (08:36→20:42)
[2021-04-16] MEDS: Folic Acid 1 MG TAB PO SCH (08:36)
[2021-04-16] MEDS: METHadone HCl 10 MG TAB PO SCH (08:38)
[2021-04-16] MEDS: Polyethylene Glycol 3350 17 GM Packet PER TUBE SCH (08:40)
[2021-04-16] MEDS: Thiamine 100 MG TAB PO SCH (08:42)
[2021-04-16] MEDS: Lisinopril 5 MG TAB PO SCH (08:43)
[2021-04-16] MEDS: Valproate Sodium 250 mg/5 ml UD Cup PO SCH ×3 (08:46→20:44)
[2021-04-16 12:04] VITALS: BMI 31.8
[2021-04-16] MEDS ORDERED: OLANZapine 5 MG TAB PO SCH (13:45)
[2021-04-16 15:11] LABS: Anion Gap 14 mmol/L (10-20); BUN (Urea Nitrogen) 15 mg/dL (8.9-20.6); Calc. Creatinine Clearance 184 mL/min (70-130); Calcium 9.4 mg/dL (7.8-10.44); Carbon Dioxide 27 mmol/L (22-29); Chloride 97 mmol/L (98-107); Glucose 89 mg/dL (70-105); Potassium 4.5 mmol/L (3.5-5.1); Sodium 133 mmol/L (136-145)
[2021-04-16] MEDS: Melatonin 3 MG TAB PO SCH (20:43)
[2021-04-17 06:13] LABS: #Basophils 0.1 10x3/uL (0.0-0.2); #Eosinphils 0.3 10x3/uL (0.0-0.5); #Monocytes 0.9 10x3/uL (0.0-1.1); #Neutrophils 2.9 10x3/uL (1.5-8.4); %Basophils 1.1 % (0.0-2.0); %Lymphocytes 35.3 % (18.0-47.0); %Monocytes 14.1 % (0.0-10.0); %Neutrophils 43.9 % (40.0-75.0); Hemoglobin 11.4 g/dL (13.5-17.5); Mean Corpuscular HGB CONC 31.5 g/dL (32.0-36.0); Mean Corpuscular Hemoglobin 26.8 pg (27.0-33.0); Platelet Count 690 10x3/uL (150-450); RBC Distribution Width 14.3 % (11.5-14.5); Red Blood Cell (RBC) Count 4.26 10x6/uL (4.32-5.72); White Blood Cell (WBC) Count 6.6 10x3/uL (3.5-10.5)
[2021-04-17 06:26] LABS: ALT (SGPT) 26 U/L (8-55); AST (SGOT) 16 U/L (5-34); Albumin 3.7 g/dL (3.5-5.0); Alkaline Phosphatase 96 U/L (40-110); Anion Gap 15 mmol/L (10-20); BUN (Urea Nitrogen) 14 mg/dL (8.9-20.6); Bilirubin, Total 0.3 mg/dL (0.2-1.2); Calc. Creatinine Clearance 209 mL/min (70-130); Calcium 9.1 mg/dL (7.8-10.44); Carbon Dioxide 27 mmol/L (22-29); Chloride 102 mmol/L (98-107); Glucose 134 mg/dL (70-105); Potassium 4.5 mmol/L (3.5-5.1); Protein, Total 7.7 g/dL (6.0-8.3); Sodium 139 mmol/L (136-145)
[2021-04-17] MEDS: Gabapentin 300 MG CAP PO SCH ×2 (08:37→16:27)
[2021-04-17] MEDS: Enoxaparin Sodium 40 MG/0.4 ML SYRINGE SC SCH (08:38)
[2021-04-17] MEDS: Famotidine 20 MG TAB PO SCH (08:38)
[2021-04-17] MEDS: Carvedilol 3.125 MG TAB PO SCH (08:38)
[2021-04-17] MEDS: Folic Acid 1 MG TAB PO SCH (08:39)
[2021-04-17] MEDS: Lisinopril 5 MG TAB PO SCH (08:39)
[2021-04-17] MEDS: Polyethylene Glycol 3350 17 GM Packet PER TUBE SCH (08:40)
[2021-04-17] MEDS: Thiamine 100 MG TAB PO SCH (08:41)
[2021-04-17] MEDS: Valproate Sodium 250 mg/5 ml UD Cup PO SCH ×2 (08:45→16:26)
[2021-04-17] MEDS: METHadone HCl 10 MG TAB PO SCH (08:59)
[2021-04-17] MEDS ORDERED: OLANZapine 5 MG TAB PO SCH (09:00)
[2021-04-17 12:53] VITALS: BP 117/67; TEMP 97.6
== END 2021-04-17 17:45 | DRG 917 ==
LOC: CSHERS 10:51 → EDBD 14:47 → CSHICU 14:47 → CSHTELE 03-30 19:46 → CSHICU 03-30 20:51 → CSHTELE 04-12 12:01 → CSHICU 04-13 04:54 → CSHTELE 04-17 11:14
PROVIDERS: ADMIT Internal Medicine; ATTEND Family Medicine
PROC: 0BH17EZ Insertion of Endotracheal Airway into Trachea, Via Natural or Artificial Opening (ICD-10-PCS; principal; 2021-03-28)
PROC: 5A1955Z Respiratory Ventilation, Greater than 96 Consecutive Hours (ICD-10-PCS; 2021-03-28)
PROC: 02HV33Z Insertion of Infusion Device into Superior Vena Cava, Percutaneous Approach (ICD-10-PCS; 2021-03-29)
PROC: B5181ZA Fluoroscopy of Superior Vena Cava using Low Osmolar Contrast, Guidance (ICD-10-PCS; 2021-03-29)
PROC: B548ZZA Ultrasonography of Superior Vena Cava, Guidance (ICD-10-PCS; 2021-03-29)
DX: T43.621A Poisoning by amphetamines, accidental (unintentional), initial encounter (principal); G92.9 Unspecified toxic encephalopathy; J69.0 Pneumonitis due to inhalation of food and vomit; J96.01 Acute respiratory failure with hypoxia; I50.21 Acute systolic (congestive) heart failure; J15.4 Pneumonia due to other streptococci; N17.9 Acute kidney failure, unspecified; M62.82 Rhabdomyolysis; E87.2 Acidosis; E87.0 Hyperosmolality and hypernatremia; J95.851 Ventilator associated pneumonia; I82.611 Acute embolism and thrombosis of superficial veins of right upper extremity; Z20.822 Contact with and (suspected) exposure to COVID-19; T40.2X1A Poisoning by other opioids, accidental (unintentional), initial encounter; R45.1 Restlessness and agitation; D64.9 Anemia, unspecified; T40.711A Poisoning by cannabis, accidental (unintentional), initial encounter; E16.2 Hypoglycemia, unspecified; F15.929 Other stimulant use, unspecified with intoxication, unspecified; E87.5 Hyperkalemia; R74.01 Elevation of levels of liver transaminase levels; E87.6 Hypokalemia; D75.839 Thrombocytosis, unspecified
CPT/HCPCS: 0240U; 31500; 36415; 36416; 36569; 36600; 43752; 51701; 70450; 70491; 71045; 71260; 74177; 76770; 80048; 80053; 80069; 80306; 80307; 81003; 81015; 81270; 82550; 82607; 82746; 82805; 83605; 83690; 83735; 84100; 84145; 85025; 85027; 85060; 85610; 85730; 86704; 86705; 86706; 86707; 86780; 86803; 87040; 87070; 87077; 87081; 87086; 87205; 87340; 87350; 87389; 87449; 87899; 93005; 93010; 93306; 93970; 94002; 94003; 94760; 96365; 96375; 99292; C1751; C9113; J1630; J1650; J1815; J1940; J2060; J2185; J2270; J2405; J2543; J2560; J2704; J2765; J3475; J3480; J3486; J3490; J7042; J7050; J7070; J7120; Q0162; S0028; U0002; U0003; U0005